=== PATIENT | female | born 1985 | race Two or more races ===

== ENCOUNTER 2024-11-17 05:55 | Emergency (ER) | payer OTHER, SELFPAY ==
[2024-11-17 05:56] VITALS: BMI 43.9
[2024-11-17 06:02] VITALS: BP 127/76; PULSE 127; RESP 19; TEMP 37.1; O2SAT 97
--- NOTE | 2024-11-17 06:20 | XR_ITS ---
Examination: Abdomen sonogram, Limited Date and time of exam: November 17, 2024 0725 hours INDICATIONS: Right upper abdominal pain with nausea vomiting beginning 4 days ago Technique: Real-time jones scale transabdominal sonographic images of the upper abdomen obtained. Findings: Normal gallbladder Normal common bile duct 0.4 cm Pancreatic head 3.3 cm Liver 17.3 cm fatty infiltration no focal liver lesions Normal hepatopedal portal venous flow Patent IVC IMPRESSION: Normal gallbladder Mild hepatomegaly fatty infiltration
--- NOTE | 2024-11-17 06:20 | XR_ITS ---
Examination: CT abdomen and pelvis without contrast. Coronal 3-D reconstructions. Sagittal 2-D reconstructions. Date and time of exam:November 17, 2024 0754 hours INDICATIONS: Onset right upper abdominal pain beginning 4 days ago CTDI: vol (mGy): 13.5 DLP: (mGycm): 781 Technique: Axial images of the abdomen have been obtained, 3 mm slice thickness Intravenous contrast material has not been administered. Low dose protocols were performed. One or more of the following dose reduction techniques were used; automated exposure control, adjustment of the mA and/or KV according to patient size, use of iterative reconstruction technique. Findings: Atelectasis in the left lower lung zone Fatty infiltration throughout the liver with significant hepatomegaly, liver irregular in contour No splenic or pancreatic lesion Gallbladder wall appears thickened 1 to 2 mm lower pole left renal calculi Mild right hydronephrosis secondary to a 4 mm distal right ureteral calculus No bowel obstruction 4.7 cm left pelvic cyst Mild urinary bladder wall thickening Normal appendix IMPRESSION: Primary hepatocellular disease versus cirrhosis Gallbladder wall appears thickened Mild right hydronephrosis secondary to 4 mm distal right ureteral calculus Recommend pelvic sonography to assess for 0.7 cm left pelvic cyst Cystitis pattern
--- NOTE | 2024-11-17 06:21 | PD.EDRME ---
Rapid Medical Screening Exam RME Arrival date/time: 11/17/24 05:55 39-year-old female presents to the emergency department today for complaints of generalized abdominal pain Chief Complaint: Abdominal Pain Vital signs: Vital Signs Temperature 98.7 F 11/17/24 06:02 Pulse Rate 127 H 11/17/24 06:02 Respiratory Rate 19 11/17/24 06:02 Blood Pressure 127/76 11/17/24 06:02 Pulse Oximetry (%) 97 11/17/24 06:02 Oxygen Delivery Method Room Air 11/17/24 06:02
[2024-11-17] MEDS: METOCLOPRAMIDE 5 MG TABLET 10 MG PO (06:51)
[2024-11-17] MEDS: FAMOTIDINE 20 MG TABLET 40 MG PO (06:51)
[2024-11-17 06:54] LABS: Collection Type, Urine Clean Catch
--- NOTE | 2024-11-17 07:02 | PD.EDABDPN ---
ED Abdominal Pain RME/HPI General Chief Complaint: Abdominal Pain Stated complaint: ABD PAIN Time seen by provider: 11/17/24 06:53 Arrival date/time: 11/17/24 05:55 RME / HPI RME / HPI narrative: 11/17/24 05:55 39-year-old female presents to the emergency department today for complaints of generalized abdominal pain DR. APARICIO MAIN ED EVALUATION: 39 year old female with history of diabetes that is diet controlled otherwise healthy presents to the ED for evaluation of abdominal pain beginning 3 days ago Friday. Described as a fullness sensation that is located most to the epigastric and right upper quadrants, rating as moderate. Exacerbated by drinking water 2 days ago. Accompanied by anorexia, nausea, vomiting, diarrhea, fevers and chills. Additionally complains of urinary frequency and urgency, no dysuria. Patient mentioned she had experienced similar abdominal fullness sensation ~ 1 year ago while taking Mounjaro injections that was exacerbated with eating carbohydrates. However, states after stopping injections her symptoms had resolved though occasionally would experience fullness sensation with eating carbs. Related Data Previous Rx's ?Medication ?Instructions ?Recorded HYDROCODONE BIT/ACETAMINOPHEN 1 tab PO Q4HR PRN Patient rated 05/21/15 (Vicodin 5/300) pain 4 to 6 #30 tabs ibuprofen 600 mg tablet 600 mg PO Q6HR PRN PAIN #30 tabs 05/23/15 Allergies Allergy/AdvReac Type Severity Reaction Status Date / Time No Known Allergies Allergy Verified 11/17/24 05:56 Review of Systems Review of Systems Systems Reviewed: All systems reviewed, normal except as documented Past Medical History Past Medical History CARDIAC: Negative Cardiac Disorders RESPIRATORY: Negative Asthma GENITOURINARY: Negative Renal Disease ENDOCRINE: Positive Diabetes Mellitus Type 2 HEMATOLOGIC: Negative Sickle Cell Disease Social History SMOKING STATUS: Never smoker SUBSTANCE USE: does not use Course Quality Measures Current suspected stage: sepsis Possible source: genitourinary Blood cultures ordered: completed in ED Antibiotic ordered: Yes Pertinent labs: 11/17/24 09:00 Lactic Acid 1.5 mMol/L (0.4-2.0) sepsis Orders Category Date Time Status Insert IV NOW Care 11/17/24 09:23 Active Referral - [facility] Stat Cons 11/17/24 09:[address] abdomen pelvis wo con Stat Exams 11/17/24 06:20 Completed US gall bladder Stat Exams 11/17/24 06:20 Completed Blood Culture (Lab) Stat Lab 11/17/24 09:00 Received CBC Stat Lab 11/17/24 06:45 Completed Comprehensive Metabolic Panel Stat Lab 11/17/24 06:45 Completed HCG Qualitative,Urine Stat Lab 11/17/24 06:36 Completed Lactic Acid [Lactate (Lactic Acid)] Stat Lab 11/17/24 09:00 Completed Lipase Stat Lab 11/17/24 06:45 Completed Troponin I Stat Lab 11/17/24 06:45 Completed UA, C/S IF [Urinalysis, C/S if Indicated] Stat Lab 11/17/24 06:36 Completed Urine Culture Stat Lab 11/17/24 06:36 Received ACETAMINOPHEN 325 mg SUPP [Tylenol Supp] Med 11/17/24 09:24 Discontinued 650 mg NC X1 ONE Acetaminophen Tab [Tylenol Tab] Med 11/17/24 09:35 Discontinued 650 mg PO X1 ONE Famotidine [Pepcid] Med 11/17/24 06:20 Discontinued 40 mg PO X1 ONE Metoclopramide [Reglan] Med 11/17/24 06:20 Discontinued 10 mg PO X1 ONE Sodium Chloride 0.9% 1000 ml [Ns] 2,000 ml Med 11/17/24 08:53 Discontinued IV 1,000 mls/hr cefTRIAXone/D5w 1gm IV premix [Rocephin/D5w 1gm IV Med 11/17/24 08:51 Discontinued premix] 1 gm in 50 ml IV X1 Reevaluation(s) Reevaluation #1: We reviewed all the results, analysis, and treatment plans. Patient is amenable to transfer. Time: 09:45 Reevaluation #2: Patient made aware she has been accepted at [facility]. Time: 10:34 Vital Signs Vital signs: Vital Signs Temperature 98.7 F 11/17/24 06:02 Pulse Rate 127 H 11/17/24 06:02 Respiratory Rate 19 11/17/24 06:02 Blood Pressure 127/76 11/17/24 06:02 Pulse Oximetry (%) 97 11/17/24 06:02 Oxygen Delivery Method Room Air 11/17/24 06:02 Pulse ox is 97% on room air which is adequate. Abdominal Pain MDM MDM Narrative MDM Narrative:: Radha Braswell, peng scribing for and in the presence of Dr. Aparicio. I interpreted all labs. Patient is on her menstrual cycle. Patient had red blood cells in her urine as well as white blood cells but rare bacteria. Patient was tachycardic upon presentation here in the emergency room with heart rate of 115. Patient then spiked a fever here in the emergency room up to 102 degrees for which she received Tylenol 650 mg p.o. Septic workup was initiated. Blood cultures were obtained. After blood cultures were obtained the patient received Rocephin 1 g IV for presumed urinary tract infection with what was shown on CT scan of the abdomen and pelvis to be a 4 mm right distal ureteral stone with mild right-sided hydronephrosis. Gallbladder ultrasound was normal. Lactic acid level is not elevated. We have no urology coverage at this facility. I will need to attempt to speak with the urologist about this patient's case to arrange close follow-up versus transfer due to what appears to be the possibility of an infected mildly obstructed right distal ureteral stone. I spoke with our transfer center who spoke with the transfer center at [facility]. I spoke with urologist, who would like the patient to be transferred to [facility] emergency room for further treatment and evaluation for this obstructing right sided infected kidney stone. Patient will be transferred in stable condition. Patient was notified of the transfer and is in agreement. Critical care time spent on this patient excluding other billable procedures was 35 minutes. Patient data External records reviewed:: [facility] previous records (I reviewed ED visit on 02/10/2024 ) Clinical information provided by:: patient Social determinants that could affect healthcare access:: none Patient has the following chronic illnesses:: Diet controlled DM How is presenting disease/condition affected by chronic disease/condition?: uneffected by Evaluation data The following diagnostics were reviewed and interpreted by me:: lab results and radiology exam(s) Lab and/or radiology exams considered but not ordered:: None Interpretation Summary: Ordering Physician: Annalee ROBLES)Heriberto NP Date of Service: 11/17/24 Procedure(s): CT abdomen pelvis wo con Accession Number(s): [id number] cc: Heriberto Mantilla NP, NP; Brett Gonzales MD; Kimberly Raza MD~ Examination: CT abdomen and pelvis without contrast. Coronal 3-D reconstructions. Sagittal 2-D reconstructions. Date and time of exam:November 17, 2024 0754 hours INDICATIONS: Onset right upper abdominal pain beginning 4 days ago CTDI: vol (mGy): 13.5 DLP: (mGycm): 781 Technique: Axial images of the abdomen have been obtained, 3 mm slice thickness Intravenous contrast material has not been administered. Low dose protocols were performed. One or more of the following dose reduction techniques were used; automated exposure control, adjustment of the mA and/or KV according to patient size, use of iterative reconstruction technique. Findings: Atelectasis in the left lower lung zone Fatty infiltration throughout the liver with significant hepatomegaly, liver irregular in contour No splenic or pancreatic lesion Gallbladder wall appears thickened 1 to 2 mm lower pole left renal calculi Mild right hydronephrosis secondary to a 4 mm distal right ureteral calculus No bowel obstruction 4.7 cm left pelvic cyst Mild urinary bladder wall thickening Normal appendix IMPRESSION: Primary hepatocellular disease versus cirrhosis Gallbladder wall appears thickened Mild right hydronephrosis secondary to 4 mm distal right ureteral calculus Recommend pelvic sonography to assess for 0.7 cm left pelvic cyst Cystitis pattern Dictated By: Brett Gonzales MD Signed By: <Electronically signed by Brett Gonzales MD in OV> 11/17/24 0827 Ordering Physician: Annalee ROBLES)Heriberto NP Date of Service: 11/17/24 Procedure(s): US gall bladder Accession Number(s): [id number] cc: Heriberto Mantilla NP, NP; Brett Gonzales MD; Kimberly Raza MD~ Examination: Abdomen sonogram, Limited Date and time of exam: November 17, 2024 0725 hours INDICATIONS: Right upper abdominal pain with nausea vomiting beginning 4 days ago Technique: Real-time jones scale transabdominal sonographic images of the upper abdomen obtained. Findings: Normal gallbladder Normal common bile duct 0.4 cm Pancreatic head 3.3 cm Liver 17.3 cm fatty infiltration no focal liver lesions Normal hepatopedal portal venous flow Patent IVC IMPRESSION: Normal gallbladder Mild hepatomegaly fatty infiltration Dictated By: Brett Gonzales MD Signed By: <Electronically signed by Brett Gonzales MD in OV> 11/17/24 0915 Medications / Prescriptions Medications or Prescriptions considered but not ordered:: None Medication administrations:: Medication Administration History Discontinued Medications Acetaminophen (Acetaminophen Supp 325 Mg Supp) 650 mg NC X1 ONE Stop: 11/17/24 09:25 Last Admin: 11/17/24 09:38 Dose: Not Given Documented By: ALLEN Non-Admin Reason: Cancelled by Provider Acetaminophen (Acetaminophen 325 Mg Tablet) 650 mg PO X1 ONE Stop: 11/17/24 09:36 Last Admin: 11/17/24 09:42 Dose: 650 mg Documented By: ALLEN Famotidine (Famotidine 20 Mg Tablet) 40 mg PO X1 ONE Stop: 11/17/24 06:21 Last Admin: 11/17/24 06:51 Dose: 40 mg Documented By: MINAL Ceftriaxone Sodium/Dextrose (Rocephin/D5w 1gm Iv Premix) 1 gm in 50 mls @ 100 mls/hr IV X1 ONE Stop: 11/17/24 09:20 Last Infusion: 11/17/24 10:00 Dose: Infused Documented By: Admin: 11/17/24 09:27 Dose: 100 mls/hr Documented By: ALLEN Sodium Chloride (Ns) 2,000 mls @ 1,000 mls/hr IV .Q2H ONE Stop: 11/17/24 10:52 Last Admin: 11/17/24 09:28 Dose: 1,000 mls/hr Documented By: ALLEN Metoclopramide HCl (Metoclopramide 5 Mg Tablet) 10 mg PO X1 ONE Stop: 11/17/24 06:21 Last Admin: 11/17/24 06:51 Dose: 10 mg Documented By: ROSEANNAL See above Consultations Consultation(s) initiated? (list below): Yes Consultation #1 (Physician, Specialty, Details): I spoke with transfer nurse Evi at [facility]. Discussed patients PMHx, HPI, ED course, exam findings, labs, and radiology results. States she will present case to urologist Dr. Iraheta. Time: 10:08 Consultation #2 (Physician, Specialty, Details): I spoke with urologist Dr. Iraheta at [facility] in [place]. Discussed patients PMHx, HPI, ED course, exam findings, labs, and radiology results. He accepts the patient for transfer, asking for ER to ER transfer. The transfer center at [facility] will present the case to their ER physician. Time: 10:31 Diagnosis Differential diagnosis abdominal pain: abdominal pain, small bowel obstruction and other (cholelithiasis, gastritis ) Most likely diagnosis given after review of the tests above:: None Admission Indicated Admission indicated?: not indicated Explain why admission is indicated or not indicated:: Patient required txfer for urology Admission Request Was there a request for admission?: No Disposition Plan Disposition Plan: Transfer Critical Care Time Critical Care Time Critical Care Time: Yes Total Critical Care Time (min.): 35 Attestation: Excluding other billable procedures The high probability of sudden, clinically significant deterioration in the patient's condition required the highest level of my preparedness to intervene urgently. The services I provided to this patient were to treat and/or prevent clinically significant deterioration. Services included the following: chart data review, reviewing nursing notes and/or old charts, documentation time, peoplesoft hcm consultant collaboration regarding findings and treatment options, medication orders and management, direct patient care, vital sign assessments and ordering, interpreting and reviewing diagnostic studies and lab tests. Aggregate critical care time includes only time during which I was engaged in work directly related to the patient's care, as described above, whether at bedside or elsewhere in the Emergency Department. It did not include time spent performing other reported procedures or the services of residents, students, nurses or physician assistants. Discharge Plan Plan Patient Disposition: [facility] Facility Pt Being Transferred to: [facility] Service Needed for Transfer: Urology Prescriptions/Referrals Prescriptions/Med Rec: No Action HYDROCODONE BIT/ACETAMINOPHEN (Vicodin 5/300) 1 TAB tablet 1 tab PO Q4HR PRN (Reason: Patient rated pain 4 to 6) Qty: 30 0RF ibuprofen 600 MG tablet 600 mg PO Q6HR PRN (Reason: PAIN) Qty: 30 0RF Referrals: Kimberly Raza MD [Primary Care Provider] - In 1 week Problem List Clinical Impression: Hydronephrosis with renal and ureteral calculus obstruction, UTI (urinary tract infection) Patient/Caregiver Discharge Instructions Print Language: Chadian Stand Alone Forms: [employer] Award Info., Patient Portal Info Letter
[2024-11-17 07:11] LABS: Basophils # (Auto) 0.0 Thou/mm3 (0.0-0.2); Basophils % (Auto) 0 % (0-2.5); Eosinophils # (Auto) 0.0 Thou/mm3 (0.0-0.5); Eosinophils % (Auto) 0 % (0-10); Hematocrit 40.6 % (36.0-46.0); Hemoglobin 14.9 g/dL (12.0-16.0); Immature Granulocytes Auto 0.05 Thou/mm3 (0.00-0.00); Lymphocytes # (Auto) 1.0 Thou/mm3 (1.0-4.8); Lymphocytes % (Auto) 9 % (10-50); Mean Corpuscular HGB Conc 36.7 g/dl (31.0-37.0); Mean Corpuscular Hemoglobin 31.5 pg (25.0-35.0); Mean Corpuscular Volume 86 fL (80-100); Monocytes # (Auto) 0.7 Thou/mm3 (0.0-0.8); Monocytes % (Auto) 6 % (0-12); Neutrophils # (Auto) 8.6 Thou/mm3 (1.8-7.7); Neutrophils % (Auto) 84 % (37-80); Nucleated Red Blood Cell # 0.00 Thou/mm3 (0.00-0.00); Nucleated Red Blood Cell % 0 /100 WBC (0); Platelet Count 147 Thou/mm3 (140-440); RDW Standard Deviation 38.2 fL (36.4-46.3); Red Blood Count 4.73 Miln/mm3 (4.00-5.20); White Blood Count 10.3 Thou/mm3 (3.6-11.0)
[2024-11-17 07:16] LABS: Amorphous Crystals,Urine Present (Absent); Bacteria,Urine Rare; Bilirubin,Urine Negative (Negative); Blood,Urine 3+ (Negative); Budding Yeast,Urine Present; Clarity,Urine Turbid (Clear/Hazy); Glucose, Urine 4+ (Negative); Granular Casts,Urine 1 /hpf (0-1); Hyaline Casts,Urine < 1 /hpf (0-1); Ketones,Urine 2+ (Negative); Leukocyte Esterase,Urine Positive (Negative); Nitrite,Urine Negative (Negative); PH,Urine 6.5 (5.0-7.0); Protein,Urine 2+ (Neg - Trace); RBC,Urine 1084 /hpf (0-3); Specific Gravity,Urine 1.024 (1.001-1.035); Squamous Epithelial Cell,Urine 8 /hpf (0-5); Urobilinogen,Urine Negative mg/dL (0.0-1.0); WBC,Urine 38 /hpf (0-5)
[2024-11-17 07:17] LABS: HCG Qualitative,Urine Negative
[2024-11-17 07:18] LABS: Alanine Aminotransferase 22 U/L (10-49); Albumin, Serum 4.5 gm/dL (3.5-5.0); Albumin/Globulin Ratio 1.4 (1.2-2.2); Alkaline Phosphatase 95 U/L (46-116); Anion Gap 11 (7-16); Aspartate Amino Transferase 13 U/L (0-34); BUN/Creatinine Ratio 11 Ratio (12-20); Bilirubin,Total 1.0 mg/dL (0.3-1.2); Blood Urea Nitrogen 10 mg/dL (9-23); Calcium 9.3 mg/dL (8.3-10.6); Calcium (Corrected) 9.3 mg/dL (8.5-10.1); Carbon Dioxide 25.2 mMol/L (20.0-31.0); Chloride 94 mMol/L (98-107); Creatinine (Component) 0.9 mg/dL (0.6-1.3); Estimated Creatinine Clearance 99.4 mL/min (>60); Globulin 3.3 gm/dL (2.3-3.5); Glucose 329 mg/dL (74-106); Lipase 37 U/L (12-53); Osmolality,Calculated 272 (275-295); Potassium 3.4 mMol/L (3.4-5.1); Sodium 130 mMol/L (136-145); Total Protein 7.8 gm/dL (5.7-8.2); Troponin I < 0.002 ng/mL (0.0-0.045); eGFR > 60 See Note
[2024-11-17 07:20] LABS: Color,Urine Lt Orange (Lt Yel-Yel); Culture Indicated,Urine Yes
[2024-11-17 08:27] VITALS: BP 116/79; PULSE 116; RESP 17; TEMP 37.4; O2SAT 96
[2024-11-17 08:41] VITALS: BP 123/80; PULSE 107; RESP 40; TEMP 38.8; O2SAT 95
--- NOTE | 2024-11-17 09:14 | PC.NURSE ---
pt came in due to abdominal pain in the upper abdomen region. PT VITAL SIGNS TAKEN sepsis alert criteria noted md notified. sepsis alert called assessed pt still in pain 12/12. pt ao x 4 bed low locked call light within reached new orders received fluids and antibiotics
[2024-11-17 09:17] LABS: Lactate (Lactic Acid) 1.5 mMol/L (0.4-2.0)
[2024-11-17] MEDS: cefTRIAXone/D5w 1gm IV premix 1 GM/50 ML BAG IV (09:27)
[2024-11-17] MEDS: SODIUM CHLORIDE 0.9% 1000 ML 2,000 ML IV (09:28)
[2024-11-17 09:42] VITALS: TEMP 38.8
[2024-11-17] MEDS: ACETAMINOPHEN 325 MG TABLET 650 MG PO (09:42)
[2024-11-17 10:00] VITALS: BP 109/76; PULSE 101; RESP 20; TEMP 37.1; O2SAT 96
--- NOTE | 2024-11-17 10:18 | PC.CC ---
Addendum entered by Rick Price RN 11/17/24 11:19: 1115: received call from [facility], transport arrived. 1112: PCS form faxed, transport set up for STAT requested by Dr. Iraheta and Dr. Schulz 1105: Transfer packet w x1 CD created and taken to ER given to Charge Caryl. Addendum entered by Rick Price RN 11/17/24 10:31: 1025: received call from [facility] requesting peer to peer w/ Dr Iraheta who is their oncall urology as well. call initiated. pt accepted by Dr Iraheta ED to ED. Original Note: 0955: Called [facility], spoke to Evi to initiated transfer request. Evi requested to speak to Dr. Schulz, call initiated. Evi stated she will reach out to Dr. Iraheta Urology to review and call us back. 0945: clinicals sent to [facility] and [facility] 0939: Called [facility], no urology oncall today. 0933: received transfer request for Urology for infected 4 mm rt distal ureteral stone w/ mild rt sided hydronehrosis. Pt's fever 102 in ED.
[2024-11-17 10:42] VITALS: TEMP 37.1
--- NOTE | 2024-11-17 11:22 | PC.NURSE ---
Report given [facility] Techn[facility] here to transport [place] [facility] [place]
== END 2024-11-17 11:40 | disposition short-term general hospital (02) ==
PROVIDERS: Nurse Practitioner Primary Care; Emergency Provider Emergency Medicine; PCP Internal Medicine
DX: N13.6 Pyonephrosis (principal); N94.89 Other specified conditions associated with female genital organs and menstrual cycle; K76.0 Fatty (change of) liver, not elsewhere classified
CPT/HCPCS: 36415; 74176; 76705; 80053; 81001; 81025; 83605; 83690; 84484; 85025; 87040; 87086; 96361; 96365; 99284; J0696; J7030; A9270

== ENCOUNTER 2024-11-18 22:41 | Emergency (ER) | payer OTHER, SELFPAY ==
[2024-11-18 22:46] VITALS: BP 131/85; PULSE 102; RESP 18; TEMP 36.9; O2SAT 96; BMI 43.0
--- NOTE | 2024-11-19 00:25 | EDNOTE_ITS ---
ED Extremity Problem RME/HPI General Chief complaint: Extremity Injury, Upper Stated complaint: CO PAIN TO BOTH ARMS AFTER RECIEVING IV POTASIUM Time Seen by Provider: 11/18/24 23:28 Arrival date/time: 11/18/24 22:41 39F with no significant PMH presents to ED with bilateral arm pain (L>R) after patient patient received 40 mEQs of IV potassium. Patient was here 2 days ago and transferred to another hospital due to infected kidney stone. Stent was placed and repeat blood showed low K. Infusion was first done in R arm, but then patient has vein pain, and IV was switched to L arm and the infusion was given more slowly. Patient just wants to make sure she doesn't need an US. Patient denies SOB. Limitations: no limitations Related Data Previous Rx's ?Medication ?Instructions ?Recorded HYDROCODONE BIT/ACETAMINOPHEN 1 tab PO Q4HR PRN Patien t rated 05/21/15 (Vicodin 5/300) pain 4 to 6 #30 tabs ibuprofen 600 mg tablet 600 mg PO Q6HR PRN PAIN #30 tabs 05/23/15 Allergies Allergy/AdvReac Type Severity Reaction Status Date / Time No Known Allergies Allergy Verified 11/18/24 22:51 Review of Systems Review of Systems Systems Reviewed: All systems reviewed, normal except as documented Constitutional Constitutional: Reports system reviewed and no additional complaints, except as documented, Denies fever(s) and Denies headache(s) ENT Ears, Nose, Mouth, and Throat: Denies disequilibrium and Denies headache(s) Cardiovascular Cardiovascular: Reports system reviewed and no additional complaints, except as documented, Denies chest pain and Denies dyspnea Respiratory Respiratory: Reports system reviewed and no additional complaints, except as documented, Denies cough and Denies dyspnea Gastrointestinal Gastrointestinal: Reports system reviewed and no additional complaints, except as documented, Denies abdominal pain, Denies nausea and Denies vomiting Musculoskeletal Musculoskeletal: Reports as per HPI and Reports arthralgias Neurologic Neurologic: Reports system reviewed and no additional complaints, except as documented, Denies confusion, Denies disequilibrium and Denies headache(s) Psychiatric Psychiatric: Denies confusion Past Medical History Past Medical History NEUROLOGIC: Negative Neurological Disorders CARDIAC: Negative Cardiac Disorders, Congestive Heart Failure or Hypertension RESPIRATORY: Negative Chronic Obstructive Pulmonary Disease (COPD) or Asthma GASTROINTESTINAL: Negative Gastrointestinal Disorders, Cirrhosis, Pancreatitis, Celiac Disease, Gall Bladder Disease, Gastrointestinal Bleed, Esophageal Varices, Colitis, Ulcerative Colitis, Diverticulitis, Diverticulosis, Ulcer, Irritable Bowel, Crohn's Disease, Obstructive Bowel, Hiatal Hernia, Hemorrhoids or Gastroesophageal Reflux Disease GENITOURINARY: Negative Genitourinary Disorders or Renal Disease REPRODUCTIVE: Positive Previous Pregnancies; Negative Endometriosis, Pelvic Inflammatory Disease or Uterine Prolapse MUSCULOSKELETAL: Negative Musculoskeletal Disorders ENDOCRINE: Positive Diabetes Mellitus Type 2; Negative Diabetes Mellitus Type 1 HEMATOLOGIC: Negative Blood Disorders or Sickle Cell Disease OTHER HISTORY: Negative Autoimmune Disease, Falls, Blood Transfusions, Organ Transplant or Cancer Family History FAMILY HISTORY: Negative Family Respiratory Disorders or Family Cardiac Disorders Surgical History SURGICAL: Negative Cardiac Surgery, Open Heart Surgery, Endocrine Surgery, Thyroidectomy, Ear Surgery, Abdominal Surgery, Nephrectomy, Joint Replacement, Neurologic Surgery or Organ Transplant Social History SMOKING STATUS: Never smoker SUBSTANCE USE: does not use ED Exam General Limitations: Present no limitations General appearance: Present alert and in no apparent distress Head Head exam: Present atraumatic Eye Eye exam: Present normal appearance, PERRL and EOMI ENT ENT exam: Present normal exam, normal oropharynx and mucous membranes moist Neck Neck exam: Present normal inspection, full ROM and trachea midline Chest Chest inspection: Present normal inspection and symmetric chest wall rise Respiratory Respiratory exam: Present normal lung sounds bilaterally Cardiovascular Cardiovascular exam: Present regular rate, normal rhythm and normal heart sounds Abdominal Exam Abdominal exam: Present soft and normal bowel sounds Extremities Exam Extremities exam: Present full ROM Expanded Upper Extremity Exam Arm exam: Present full ROM, swelling and ecchymosis Forearm/Wrist exam: Present full ROM, swelling and ecchymosis Back Exam Back exam: Present normal inspection and full ROM Neurological Exam Neurological exam: Present alert, oriented X3 and CN II-XII intact Psychiatric Psychiatric exam: Present normal affect and normal mood Skin Skin exam: Present warm, dry, intact and normal color Course Quality Measures none Vital Signs Vital signs: Vital Signs Temperature 98.4 F 11/18/24 22:46 Pulse Rate 102 H 11/18/24 22:46 Respiratory Rate 18 11/18/24 22:46 Blood Pressure 131/85 H 11/18/24 22:46 Pulse Oximetry (%) 96 11/18/24 22:46 Oxygen Delivery Method Room Air 11/18/24 22:46 O2 at 96% on RA and WNLs Extremity Problem MDM Narrative MDM Narrative:: 39F with no significant PMH presents to ED with bilateral arm pain (L>R) after patient patient received 40 mEQs of IV potassium. Patient was here 2 days ago and transferred to another hospital due to infected kidney stone. Stent was placed and repeat blood showed low K. Infusion was first done in R arm, but then patient has vein pain, and IV was switched to L arm and the infusion was given more slowly. Patient just wants to make sure she doesn't need an US. Patient denies SOB. Physical exam reveals bruising and thickened superficial veins on BUE. Normal WOB. Patient is afebrile, calm, and alert. Desulphurizer Operator given. Patient declined US after education about superficial vs deep veins. Patient data External records reviewed:: [facility] previous records Clinical information provided by:: patient Social determinants that could affect healthcare access:: none Patient has the following chronic illnesses:: none How is presenting disease/condition affected by chronic disease/condition?: no chronic disease Evaluation data The following diagnostics were reviewed and interpreted by me:: other (specify) (none) Lab and/or radiology exams considered but not ordered:: not ordered Interpretation Summary: n/a Medications / Prescriptions Medications or Prescriptions considered but not ordered:: not ordered Medication administrations:: n/a Consultations Consultation(s) initiated? (list below): No Diagnosis Extremity Problem Differential Diagnosis: herpes zoster, gout, cellulitis, superficial thrombophlebitis, deep venous thrombosis of upper extremity, lower extremity edema and deep vein thrombosis of lower extremity Most likely diagnosis given after review of the tests above:: superficial thrombophlebitis Admission Indicated Admission indicated?: not indicated Admission Request Was there a request for admission?: No Disposition Plan Disposition Plan: Discharge Discharge Attestation Discharge Attestation: The patient and all family members were given an opportunity to ask questions and understood the discharge instructions. Discharge instructions specifically effects, indications for sooner follow up or return to the emergency department, and the expected course of current diagnosis. Patient condition: Stable Discharge Plan Plan Patient Disposition: HOME (Self Care) Discharge Disposition comment: Stable Prescriptions/Referrals Prescriptions/Med Rec: No Action HYDROCODONE BIT/ACETAMINOPHEN (Vicodin 5/300) 1 TAB tablet 1 tab PO Q4HR PRN (Reason: Patient rated pain 4 to 6) Qty: 30 0RF ibuprofen 600 MG tablet 600 mg PO Q6HR PRN (Reason: PAIN) Qty: 30 0RF Referrals: Ry ([facility]),Nirupama, MD [Primary Care Provider] - In 1 week Problem List Clinical Impression: Phlebitis after infusion Patient/Caregiver Discharge Instructions Education Materials: ED Thrombophlebitis, Superficial Additional Instructions: Please follow-up with PCP within 24-48 hours and return immediately if symptoms worsen. Print Language: Finnish Stand Alone Forms: Patient Portal Info Letter PA/RUBBER COMPOUNDER Supervising Physician PA/RUBBER COMPOUNDER Supervising Physician: Dr. Enriquez
== END 2024-11-19 00:03 | disposition home or self-care (01) ==
PROVIDERS: Emergency Provider Emergency Medicine; PCP Internal Medicine
DX: T80.1XXA Vascular complications following infusion, transfusion and therapeutic injection, initial encounter (principal); I80.8 Phlebitis and thrombophlebitis of other sites; Y84.8 Other medical procedures as the cause of abnormal reaction of the patient, or of later complication, without mention of misadventure at the time of the procedure
CPT/HCPCS: 99283

== ENCOUNTER 2025-01-14 06:14 | Emergency (ER) | payer OTHER, SELFPAY ==
[2025-01-14 06:16] VITALS: BMI 42.0
[2025-01-14 06:23] VITALS: BP 120/78; PULSE 93; RESP 18; TEMP 37.1; O2SAT 97
--- NOTE | 2025-01-14 06:55 | XR_ITS ---
Examination: Pelvic ultrasound, transabdominal, complete Technique: Transabdominal ultrasound of the pelvis performed using grayscale imaging Date and time of exam: January 14, 2025 0723 hours INDICATIONS: Vaginal pain and pressure beginning 2 months ago FINDINGS: Uterus 10.3 cm endometrial stripe 0.7 cm No discrete uterine mass, no intrauterine gestation Right ovary 3.3 cm arterial flow. Left ovary 3.8 cm arterial flow IMPRESSION: No discrete uterine mass, no intrauterine gestation
--- NOTE | 2025-01-14 06:57 | PD.EDRME ---
Rapid Medical Screening Exam RME Arrival date/time: 01/14/25 06:14 39-year-old female with no known medical history presents to the emergency room with a chief complaint of dysuria, and a sensation of fullness and pressure in the vagina. Patient states the symptoms began after a renal stent placement. I have greeted and performed a focused initial assessment of this patient. A comprehensive ED assessment and evaluation of the patient, analysis of all test results, and completion of the medical decision making process will be conducted by additional ED providers. Chief Complaint: Urogenital-Female Vital signs: Vital Signs Temperature 98.8 F 01/14/25 06:23 Pulse Rate 93 01/14/25 06:23 Respiratory Rate 18 01/14/25 06:23 Blood Pressure 120/78 01/14/25 06:23 Pulse Oximetry (%) 97 01/14/25 06:23 Oxygen Delivery Method Room Air 01/14/25 06:23 Vital signs reviewed by provider: Yes
[2025-01-14 07:43] LABS: Alanine Aminotransferase 14 U/L (10-49); Albumin, Serum 4.3 gm/dL (3.5-5.0); Albumin/Globulin Ratio 1.7 (1.2-2.2); Alkaline Phosphatase 93 U/L (46-116); Anion Gap 9 (7-16); Aspartate Amino Transferase < 8 U/L (0-34); BUN/Creatinine Ratio 11 Ratio (12-20); Basophils # (Auto) 0.0 Thou/mm3 (0.0-0.2); Basophils % (Auto) 0 % (0-2.5); Bilirubin,Total 0.5 mg/dL (0.3-1.2); Blood Urea Nitrogen 8 mg/dL (9-23); Calcium 9.2 mg/dL (8.3-10.6); Calcium (Corrected) 9.2 mg/dL (8.5-10.1); Carbon Dioxide 25.1 mMol/L (20.0-31.0); Chloride 106 mMol/L (98-107); Creatinine (Component) 0.7 mg/dL (0.6-1.3); Eosinophils # (Auto) 0.2 Thou/mm3 (0.0-0.5); Eosinophils % (Auto) 3 % (0-10); Estimated Creatinine Clearance 124.7 mL/min (>60); Globulin 2.6 gm/dL (2.3-3.5); Glucose 201 mg/dL (74-106); Hematocrit 40.1 % (36.0-46.0); Hemoglobin 13.9 g/dL (12.0-16.0); Immature Granulocytes Auto 0.02 Thou/mm3 (0.00-0.00); Lymphocytes # (Auto) 2.1 Thou/mm3 (1.0-4.8); Lymphocytes % (Auto) 30 % (10-50); Mean Corpuscular HGB Conc 34.7 g/dl (31.0-37.0); Mean Corpuscular Hemoglobin 31.4 pg (25.0-35.0); Mean Corpuscular Volume 91 fL (80-100); Monocytes # (Auto) 0.4 Thou/mm3 (0.0-0.8); Monocytes % (Auto) 5 % (0-12); Neutrophils # (Auto) 4.3 Thou/mm3 (1.8-7.7); Neutrophils % (Auto) 61 % (37-80); Nucleated Red Blood Cell # 0.00 Thou/mm3 (0.00-0.00); Nucleated Red Blood Cell % 0 /100 WBC (0); Osmolality,Calculated 283 (275-295); Platelet Count 212 Thou/mm3 (140-440); Potassium 4.0 mMol/L (3.4-5.1); RDW Standard Deviation 40.4 fL (36.4-46.3); Red Blood Count 4.42 Miln/mm3 (4.00-5.20); Sodium 140 mMol/L (136-145); Total Protein 6.9 gm/dL (5.7-8.2); White Blood Count 7.1 Thou/mm3 (3.6-11.0); eGFR > 60 See Note
[2025-01-14 08:07] LABS: Collection Type, Urine Clean Catch
[2025-01-14 08:20] LABS: Bilirubin,Urine Negative (Negative); Blood,Urine 3+ (Negative); Clarity,Urine Turbid (Clear/Hazy); Color,Urine Colorless (Lt Yel-Yel); Glucose, Urine Trace (Negative); Ketones,Urine Negative (Negative); Leukocyte Esterase,Urine Positive (Negative); Nitrite,Urine Negative (Negative); PH,Urine 6.5 (5.0-7.0); Protein,Urine Trace (Neg - Trace); RBC,Urine 226 /hpf (0-3); Specific Gravity,Urine 1.012 (1.001-1.035); Squamous Epithelial Cell,Urine 7 /hpf (0-5); Urobilinogen,Urine Negative mg/dL (0.0-1.0); WBC,Urine 31 /hpf (0-5)
[2025-01-14 08:21] LABS: HCG Qualitative,Urine Negative
--- NOTE | 2025-01-14 10:04 | EDNOTE_ITS ---
ED Female Urogenital RME/HPI General Chief complaint: Urogenital-Female Stated complaint: POSS PROLAPSED UTERUS/BLADDER Time Seen by Provider: 01/14/25 07:00 Arrival date/time: 01/14/25 06:14 Limitations: no limitations RME / HPI RME / HPI Narrative: 01/14/25 06:14 39-year-old female with no known medical history presents to the emergency room with a chief complaint of dysuria, and a sensation of fullness and pressure in the vagina. Patient states the symptoms began after a renal stent placement. I have greeted and performed a focused initial assessment of this patient. A comprehensive ED assessment and evaluation of the patient, analysis of all test results, and completion of the medical decision making process will be conducted by additional ED providers. DR. SEARS MAIN ED EVALUATION: 39 year old female with history of kidney stone s/p ureteral stent placement 2 months ago presents to the ED for evaluation of pressure sensation in vagina beginning several days ago. Patient states yesterday she felt something in her vagina and concerned she may have a prolapse. Accompanied by a bladder heaviness and stinging sensation while urinating. Reportedly 2 months ago after stent placement she took and completed 2-weeks worth of antibiotics. Denies fevers, chills, sweats, abdominal pain, n/v, hematuria, or urinary frequency. Related Data Previous Rx's ?Medication ?Instructions ?Recorded HYDROCODONE BIT/ACETAMINOPHEN 1 tab PO Q4HR PRN Patien t rated 05/21/15 (Vicodin 5/300) pain 4 to 6 #30 tabs ibuprofen 600 mg tablet 600 mg PO Q6HR PRN PAIN #30 tabs 05/23/15 nitrofurantoin 100 mg PO BID uti 10 days #2 0 caps 01/14/25 monohydrate/macrocrystals 100 mg capsule (Macrobid) Allergies Allergy/AdvReac Type Severity Reaction Status Date / Time No Known Allergies Allergy Verified 11/18/24 22:51 Review of Systems Review of Systems Systems Reviewed: All systems reviewed, normal except as documented Past Medical History Past Medical History GENITOURINARY: Positive Kidney Stones REPRODUCTIVE: Positive Previous Pregnancies ENDOCRINE: Positive Diabetes Mellitus Type 2 Family History FAMILY HISTORY: Negative Family Respiratory Disorders or Family Cardiac Disorders Surgical History SURGICAL: Negative Cardiac Surgery, Open Heart Surgery, Endocrine Surgery, Thyroidectomy, Ear Surgery, Abdominal Surgery, Nephrectomy, Joint Replacement or Neurologic Surgery Social History SMOKING STATUS: Never smoker SUBSTANCE USE: does not use ED Exam General Limitations: Present no limitations General appearance: Present alert and in no apparent distress Head Head exam: Present atraumatic, normocephalic and normal inspection Eye Eye exam: Present normal appearance, PERRL and EOMI ENT ENT exam: Present normal exam, normal oropharynx and mucous membranes moist Neck Neck exam: Present normal inspection, full ROM and trachea midline Chest Chest inspection: Present normal inspection and symmetric chest wall rise Respiratory Respiratory exam: Present normal lung sounds bilaterally Cardiovascular Cardiovascular exam: Present regular rate, normal rhythm and normal heart sounds Abdominal Exam Abdominal exam: Present soft and normal bowel sounds External exam: Present normal external exam Speculum exam: Present normal speculum exam Bimanual exam: Present normal bimanual exam and other (No rectocele, cystocele, or prolapse of cervix ) Extremities Exam Extremities exam: Present normal inspection and full ROM Back Exam Back exam: Present normal inspection and full ROM Neurological Exam Neurological exam: Present alert, oriented X3 and CN II-XII intact Psychiatric Psychiatric exam: Present normal affect and normal mood Skin Skin exam: Present warm, dry, intact and normal color Course Quality Measures none Orders Category Date Time Status Utility Sales Representative NOW Care 01/14/25 10:50 Active Continuous Pulse Oximetry NOW Care 01/14/25 10:50 Completed Insert IV NOW Care 01/14/25 10:50 Active Pelvic Exam X1 Care 01/14/25 06:55 Active US pelvic complete Stat Exams 01/14/25 06:55 Completed CBC Stat Lab 01/14/25 07:10 Completed CMP [Comprehensive Metabolic Panel] Stat Lab 01/14/25 07:10 Completed HCG Qualitative,Urine Stat Lab 01/14/25 07:58 Completed UA [Urinalysis] Stat Lab 01/14/25 07:58 Completed Urine Culture Stat Lab 01/14/25 07:58 Received [id number] [Rocephin] 2 gm Med 01/14/25 10:50 Active SODIUM CHLORIDE 0.9% (Popper) [Ns 0.9% (P)] 50 ml IV X1 Vital Signs Vital signs: Vital Signs Temperature 98.8 F 01/14/25 06:23 Pulse Rate 93 01/14/25 06:23 Respiratory Rate 18 01/14/25 06:23 Blood Pressure 120/78 01/14/25 06:23 Pulse Oximetry (%) 97 01/14/25 06:23 Oxygen Delivery Method Room Air 01/14/25 06:23 Pulse ox is 97% on room air which is adequate. Urogenital - Female MDM Narrative MDM Narrative:: Radha Braswell am scribing for and in the presence of Dr. Sears. Patient data External records reviewed:: [facility] previous records (I reviewed ED visit on 11/19/2024 ) Clinical information provided by:: patient Social determinants that could affect healthcare access:: none Patient has the following chronic illnesses:: kidney stone s/p ureteral stent placement 2 months ago How is presenting disease/condition affected by chronic disease/condition?: exacerbated by Evaluation data The following diagnostics were reviewed and interpreted by me:: lab results and radiology exam(s) Lab and/or radiology exams considered but not ordered:: None Interpretation Summary: Ordering Physician: Kenneth Aldana Date of Service: 01/14/25 Procedure(s): US pelvic complete Accession Number(s): [id number] cc: Kenneth Aldana; Brett Gonzales MD; Kimberly Raza MD~ Examination: Pelvic ultrasound, transabdominal, complete Technique: Transabdominal ultrasound of the pelvis performed using grayscale imaging Date and time of exam: January 14, 2025 0723 hours INDICATIONS: Vaginal pain and pressure beginning 2 months ago FINDINGS: Uterus 10.3 cm endometrial stripe 0.7 cm No discrete uterine mass, no intrauterine gestation Right ovary 3.3 cm arterial flow. Left ovary 3.8 cm arterial flow IMPRESSION: No discrete uterine mass, no intrauterine gestation Dictated By: Brett Gonzales MD Signed By: <Electronically signed by Brett Gonzales MD in OV> 01/14/25 0943 Medications / Prescriptions Medications or Prescriptions considered but not ordered:: None Medication administrations:: Medication Administration History Ceftriaxone Sodium 2 gm/ (Sodium Chloride) 50 mls @ 100 mls/hr IV X1 ONE Stop: 01/14/25 11:19 Last Admin: 01/14/25 11:14 Dose: 100 mls/hr Documented By: VL See above Consultations Consultation(s) initiated? (list below): No Diagnosis Urogenital Female Differential Diagnosis: urinary tract infection, vaginitis and cystitis Most likely diagnosis given after review of the tests above:: UTI Admission Indicated Admission indicated?: not indicated Admission Request Was there a request for admission?: No Disposition Plan Disposition Plan: Discharge Discharge Attestation Discharge Attestation: The patient and all family members were given an opportunity to ask questions and understood the discharge instructions. Discharge instructions specifically effects, indications for sooner follow up or return to the emergency department, and the expected course of current diagnosis. Patient condition: Stable Discharge Plan Plan Patient Disposition: HOME (Self Care) Prescriptions/Referrals Prescriptions/Med Rec: New nitrofurantoin monohyd/m-cryst [Macrobid] 100 mg capsule 100 mg PO BID MDD 2 10 Days Qty: 20 0RF Rx Instructions: must administer with a meal/food No Action HYDROCODONE BIT/ACETAMINOPHEN (Vicodin 5/300) 1 TAB tablet 1 tab PO Q4HR PRN (Reason: Patient rated pain 4 to 6) Qty: 30 0RF ibuprofen 600 MG tablet 600 mg PO Q6HR PRN (Reason: PAIN) Qty: 30 0RF Referrals: Kimberly Raza MD [Primary Care Provider, Nephrology] - In 1 week Problem List Clinical Impression: Urinary tract infection Patient/Caregiver Discharge Instructions Education Materials: ED CYSTITIS Female Adult Additional Instructions: Follow-up with your doctor in 3 to 4 days. Make sure to check the urine culture for results. Take your medications as directed. Print Language: Luxembourger Stand Alone Forms: [employer] Award Info., Patient Portal Info Letter
[2025-01-14 11:05] VITALS: BP 105/68; PULSE 72; RESP 19; TEMP 36.7; O2SAT 96
[2025-01-14] MEDS: cefTRIAXone 2 GM in SODIUM CHLORIDE 0.9% (Popper) 50 ML IV (11:14)
== END 2025-01-14 11:43 | disposition home or self-care (01) ==
PROVIDERS: Nurse Practitioner Family; Emergency Provider Family Medicine; PCP Internal Medicine
DX: N39.0 Urinary tract infection, site not specified (principal); R10.2 Pelvic and perineal pain
CPT/HCPCS: 36415; 76856; 80053; 81001; 81025; 85025; 87077; 87086; 87186; 99284; J0696; J7050

== ENCOUNTER → 2025-01-18 | Outpatient (CLI) | payer OTHER, SELFPAY ==
[2025-01-18 14:54] LABS: Collection Type, Urine Clean Catch
[2025-01-18 15:07] LABS: Basophils # (Auto) 0.0 Thou/mm3 (0.0-0.2); Basophils % (Auto) 0 % (0-2.5); Eosinophils # (Auto) 0.2 Thou/mm3 (0.0-0.5); Eosinophils % (Auto) 2 % (0-10); Hematocrit 43.6 % (36.0-46.0); Hemoglobin 15.2 g/dL (12.0-16.0); Immature Granulocytes Auto 0.04 Thou/mm3 (0.00-0.00); Lymphocytes # (Auto) 3.6 Thou/mm3 (1.0-4.8); Lymphocytes % (Auto) 36 % (10-50); Mean Corpuscular HGB Conc 34.9 g/dl (31.0-37.0); Mean Corpuscular Hemoglobin 31.1 pg (25.0-35.0); Mean Corpuscular Volume 89 fL (80-100); Monocytes # (Auto) 0.5 Thou/mm3 (0.0-0.8); Monocytes % (Auto) 5 % (0-12); Neutrophils # (Auto) 5.6 Thou/mm3 (1.8-7.7); Neutrophils % (Auto) 56 % (37-80); Nucleated Red Blood Cell # 0.00 Thou/mm3 (0.00-0.00); Nucleated Red Blood Cell % 0 /100 WBC (0); Platelet Count 225 Thou/mm3 (140-440); RDW Standard Deviation 39.6 fL (36.4-46.3); Red Blood Count 4.88 Miln/mm3 (4.00-5.20); White Blood Count 9.9 Thou/mm3 (3.6-11.0)
[2025-01-18 15:14] LABS: Bacteria,Urine Rare; Bilirubin,Urine Negative (Negative); Blood,Urine 3+ (Negative); Clarity,Urine Clear (Clear/Hazy); Color,Urine Lt-Yellow (Lt Yel-Yel); Glucose, Urine Negative (Negative); Ketones,Urine Negative (Negative); Leukocyte Esterase,Urine Positive (Negative); Nitrite,Urine Negative (Negative); PH,Urine 6.5 (5.0-7.0); Protein,Urine Negative (Neg - Trace); RBC,Urine 27 /hpf (0-3); Specific Gravity,Urine 1.008 (1.001-1.035); Squamous Epithelial Cell,Urine 4 /hpf (0-5); Urobilinogen,Urine Negative mg/dL (0.0-1.0); WBC,Urine 15 /hpf (0-5)
[2025-01-18 15:16] LABS: Glucose Estimated Average 169 mg/dL (80-131); Hemoglobin A1C 7.5 % Hgb (4.8-6.0)
[2025-01-18 15:21] LABS: Alanine Aminotransferase 16 U/L (10-49); Albumin, Serum 4.8 gm/dL (3.5-5.0); Albumin/Globulin Ratio 1.7 (1.2-2.2); Alkaline Phosphatase 96 U/L (46-116); Anion Gap 10 (7-16); Aspartate Amino Transferase 11 U/L (0-34); BUN/Creatinine Ratio 13 Ratio (12-20); Bilirubin,Total 0.5 mg/dL (0.3-1.2); Blood Urea Nitrogen 8 mg/dL (9-23); Calcium 10.3 mg/dL (8.3-10.6); Calcium (Corrected) 10.3 mg/dL (8.5-10.1); Carbon Dioxide 27.4 mMol/L (20.0-31.0); Cardiac Risk Estimate 3.8 RATIO (3.7-5.6); Chloride 102 mMol/L (98-107); Cholesterol 183 mg/dL (132-200); Creatinine (Component) 0.6 mg/dL (0.6-1.3); Globulin 2.8 gm/dL (2.3-3.5); Glucose 137 mg/dL (74-106); HDL Cholesterol 48 mg/dL (40-60); LDL Cholesterol,Calculated 97 mg/dL (0-130); Osmolality,Calculated 277 (275-295); Potassium 4.2 mMol/L (3.4-5.1); Sodium 139 mMol/L (136-145); Thyroid Stimulating Hormone 0.58 uIU/mL (0.55-4.78); Total Protein 7.6 gm/dL (5.7-8.2); Triglycerides 188 mg/dL (30-150); Uric Acid 3.0 mg/dL (3.1-7.8); eGFR > 60 See Note
[2025-01-18 15:22] LABS: Creatinine MALB Rnd Ur 34 mg/dL (30-125); Microalbumin Creat Ratio 203 mg/gCrea (<30); Microalbumin, Random Urine 69 mg/L (0-300)
[2025-01-18 15:26] LABS: Vitamin B12 374 pg/mL (211-911); Vitamin D 25 Hydroxy Total 21.4 ng/mL (7.3-40.2)
== END | disposition home or self-care (01) ==
LOC: COPL 14:17
PROVIDERS: PCP Internal Medicine; Referring Provider Internal Medicine; Visit Provider Internal Medicine
DX: Z00.00 Encounter for general adult medical examination without abnormal findings (principal); E11.9 Type 2 diabetes mellitus without complications
CPT/HCPCS: 36415; 80053; 80061; 81001; 82043; 82306; 82570; 82607; 83036; 84443; 84550; 85025

== ENCOUNTER → 2025-01-20 | Outpatient (CLI) | payer OTHER, SELFPAY ==
--- NOTE | 2025-01-20 | XR_ITS ---
Examination: Abdomen AP single view Technique: AP portable supine abdomen, single view Exam date and time: January 20, 2025 12:06 PM INDICATIONS: History kidney stones right ureteral stent placement FINDINGS: No renal calculi depicted Right ureteral stent is low in position, the lower end in the urethra, the upper end at the level of L4 4 mm calcification adjacent to the lower portion of the ureteral stent in the pelvis IMPRESSION: Low position right ureteral stent
== END | disposition home or self-care (01) ==
LOC: CDIM 11:03
PROVIDERS: PCP Internal Medicine; Referring Provider Surgery; Visit Provider Surgery
DX: N20.1 Calculus of ureter (principal); Z98.890 Other specified postprocedural states
CPT/HCPCS: 74018

== ENCOUNTER 2025-02-28 10:01 | Outpatient (AMB) | payer OTHER, SELFPAY ==
--- NOTE | 2025-02-28 10:39 | GYNCLNT_ITS ---
Vital Signs 02/28/25 10:40 Height 1.57 m Height Method Stated Weight 103.532 kg Weight Measurement Method Standing Scale BMI 41.7 BP 117/65 Blood Pressure Source Automatic Cuff Blood Pressure Location Right Upper Arm Position Sitting Respiration 18 Pulse 108 H Pulse Source Monitor Temp 97.6 F Temp Source Temporal Artery Scan Pulse Oximetry (%) 98 Oxygen Delivery Method Room Air Allergies/Home Meds Allergies & Medications Allergies No Known Allergies Allergy (Verified 02/28/25 10:46) Medication Reconciliation phentermine 3.75 mg-topiramate ER 23 mg capsule,ext.release 24hr mphas (Qsymia) 1 cap PO QDAY 02/28/25 [History Confirmed 02/28/25] Intake Visit Data Collection New Patient or Established: Established Patient (seen at [facility] within 3 years) Reason for Visit:: PAP Seen by Clinical Staff ONLY (RN/MA): No Special Procedures Technologist Required: No Do You Feel Safe at Home: Yes Authorities Contacted: N/A PCP or OBGYN visit in last 3 months: Yes Hx Now: No Are you currently on any form of Control: No Last menstrual period: 02/16/25 Pain Present Currently: No Pain Scale Used: Merrill-Olmedo/Numerical Pain scale:: 0 Smoking Status Smoking Status: Never smoker Immunizations Flu Vaccine in the Last 12 Months: Yes Flu Vaccine Exclusion Criteria: Already Received 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 [place] 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 Menstrual regularity: regular Flow: normal Monthly: Yes How many days does period last: 4 Age at menarche: 11 Currently sexually active: Yes [employer]: Past Medical History Past Medical History: No Hx Neurological Disorders, No Hx Cardiac Disorders, No Hx Hypertension, No Hx Cancer, No Hx Blood Disorders, No Hx Gastrointestinal Disorders, No Hx Renal Disease, No Hx Diabetes Mellitus Type 1 and Yes Hx Diabetes Mellitus Type 2 Questionnaires Covid-19 Vaccine Questionnaire Has patient been vacinated for Covid-19 Have you been vacinated for Covid-19: Yes PHQ-9 PHQ-2 Over the last 2 weeks, how often have you been bothered by any of the following problems? 1. Little interest or pleasure in doing things: not at all 2. Feeling down, depressed, or hopeless: not at all Total score: 0 PHQ-9 3. Trouble falling or staying asleep, or sleeping too much: Not at all 4. Feeling tired or having little energy: Not at all 5. Poor appetite or overeating: Not at all 6. Feeling bad about yourself - or that you are a failure or have let yourself or your family down: Not at all 7. Trouble concentrating on things, such as reading the newspaper or watching television: Not at all 8. Moving or speaking so slowly that other people could have noticed? - Or the opposite - being so fidgety or restless that you have been moving around a lot more than usual: not at all 9. Thoughts that you would be better off or of hurting yourself in some way: Not at all Total score: 0 If you checked off any problems, how difficult have these problems made it for you to do your work, take care of things at home, or get along with other people?: not difficult at all Source: Developed by Drs. Emilio Bravo, Lizzei Craft, Chaz Negrete and colleagues, with an educational carlos from [employer]. Depression screen completed yes Social History Living Situation History Marital Status: Lives With: Family Housing: House Tobacco History Smoking Status: Never smoker Second Hand Smoke Exposure: No Alcohol History Alcohol Intake: Never Domestic Abuse History Do You Feel Safe at Home: Yes History of Present Illness HPI Narrative Pap smear Patient is a 39-year-old presenting for pap smear. Her last pap smear was approximately 3-4 years ago during her with her now nearly 3-year-old child, and all previous pap smears have been normal to her knowledge. The patient recently experienced kidney stones with a stone trapped in her ureter. She developed sepsis and had a ureteral stent placed in [place]. During the 2 months the stent was in place, she experienced continuous UTI symptoms and was repeatedly treated with antibiotics. The stent eventually came out through her vagina, which she removed herself, and found that the kidney stone was attached to the end of the stent. She was scheduled for stent removal with Dr. Stover locally, but the visit was not completed since the stent had already come out. Dr. Stover confirmed the stone was complete and intact at the end of the stent and told her no follow-up x-ray was needed. The patient denies any other complaints at this time. Medical History: - Kidney stones with ureter obstruction requiring stent placement, complicated by sepsis - Urinary tract infection symptoms during stent placement Surgical History: - Three sections - Ureteral stent placement for kidney stone with sepsis Obstetric History: - GTPAL: G4 T3 L3 - History of one miscarriage - Three deliveries resulting in living children Medications: - Antibiotics for UTI symptoms while stent was in place Social History: - Has a 3-year-old child Exam Narrative Physical exam: - Genitourinary: Internal examination reveals normal appearance without abnormal openings. Office Procedures [facility] LOC & Office Proc's Nursing/Assessment Patient Status: Established Patient OB Clinic Nursing Assessment: Medication Reconciliation, Update PMH in EMR and Vital Signs OB Clinic Coordination of Care: Complex Care and Chronic Disease 1-5, Education Complex Pt/Fam, Consent,records obtained, informed consent, Lab and Imaging orders, Results/Orders obtained and Staff clarify orders Miscellaneous Interventions: Blood/Urine Collection and Pelvic/Pap Smear Set up Established Patient Charge Established Patient Point Assignment: 160 Established Patient Point Charge: EP Level 5 (160-above) Assessment & Plan Diagnosis / Problem List (1) Ureteral stent displacement: Status: Acute (2) Encounter for screening for malignant neoplasm of cervix: Status: Acute (3) Ureterovaginal fistula: Status: Acute Plan Cervical cancer screening Assessment: Patient is due for routine cervical cancer screening. Last pap smear was approximately 3-4 years ago during her with her now 3-year-old child. All previous pap smears have been normal per patient report. Physical examination shows normal internal appearance without abnormalities. Plan: - Pap smear performed during this visit Possible ureterovaginal fistula Assessment: Patient has concerning history of ureteral stent that migrated and came out through the vagina rather than through the urinary tract. This suggests possible connection between ureter and vagina (ureterovaginal fistula). Patient had ureteral stent placed in [place] after going septic from kidney stones. Stent was in place for 2 months with persistent UTI symptoms. Patient removed stent herself when it came out through vagina with stone attached. On examination, no abnormal opening is visualized internally, which is reassuring, but imaging is needed to definitively rule out fistula. Plan: - Order CT urogram with contrast to evaluate ureter from kidney to bladder and assess for ureterovaginal fistula - Referral will be placed for imaging study - Patient will be contacted when insurance authorization is complete - Patient to inform primary care physician Dr. Cook about this evaluation at upcoming appointment
[2025-02-28 10:40] VITALS: BP 117/65; PULSE 108; RESP 18; TEMP 36.4; O2SAT 98; BMI 41.7
== END 2025-02-28 11:09 | disposition home or self-care (01) ==
LOC: HODSOBC 10:01
PROVIDERS: Supervising Provider Obstetrics & Gynecology; Visit Provider Obstetrics & Gynecology
DX: Z12.4 Encounter for screening for malignant neoplasm of cervix (principal); N82.1 Other female urinary-genital tract fistulae; E11.9 Type 2 diabetes mellitus without complications; Z87.442 Personal history of urinary calculi; Z87.440 Personal history of urinary (tract) infections; Z98.890 Other specified postprocedural states
CPT/HCPCS: 99215; G0463

== ENCOUNTER → 2025-03-18 | Outpatient (CLI) | payer OTHER, SELFPAY ==
--- NOTE | 2025-03-18 10:58 | XR_ITS ---
Examination: CT abdomen with intravenous contrast CT pelvis with intravenous contrast 2-D coronal reconstructions 2-D sagittal reconstructions Date and time of exam: March 18, 2025, 1117 hours, comparison November 17, 2024 INDICATIONS: History kidney stones ureteral stent placement. CTDI: vol (mGy) 28.1 DLP: (mGycm) 1618 Technique: Multiple axial sections of the abdomen and pelvis have been obtained. 64 slice high-resolution scanner used. 3 mm axial sections have been obtained, post intravenous injection 60 cc [id number] 2-D sagittal, coronal reconstructions obtained. Low dose protocols were performed. One or more of the following dose reduction techniques were used; automated exposure control, adjustment of the mA and/or KV according to patient size, use of iterative reconstruction technique. Findings: No focal liver or splenic lesions No gallstones No pancreatic or adrenal mass 2 mm left renal calculus No hydronephrosis or ureteral calculi Aorta normal size No bowel obstruction Colonic diverticulosis Right ovarian follicular cysts Urinary bladder intact IMPRESSION: 2 mm left renal calculus No hydronephrosis or ureteral calculi
[2025-03-18 11:01] LABS: HCG Qualitative,Urine Negative
== END | disposition home or self-care (01) ==
PROVIDERS: PCP Internal Medicine; Referring Provider Obstetrics & Gynecology; Visit Provider Obstetrics & Gynecology
DX: N20.0 Calculus of kidney (principal); T83.122A Displacement of indwelling ureteral stent, initial encounter
CPT/HCPCS: 74177; 81025; A4649; Q9967